=== PATIENT | female | born 1950 | race Caucasian/White ===

== ENCOUNTER → 2016-10-30 09:13 | Outpatient (CLI) | payer MEDICARE, OTHER ==
[~2016-10-30 09:13] MED LIST: ACETAMINOPHEN500 M1 PO; BENADRYL25 MG PO; ELAVIL75 MG PO; IMODIUM2 MG PO; K-DUR20 MEQ PO; LOMOTIL TABLET1 TAB PO; LOPID600 MG PO; MELATONIN 10 M1 EACH PO; MIDODRINE HCL5 MG PO; QUESTRAN PACK4 G/PKT PO; ZYRTEC10 MG PO
== END | disposition home or self-care (01) ==
LOC: D.US 09:13
DX: N25.81 Secondary hyperparathyroidism of renal origin (principal); N18.4 Chronic kidney disease, stage 4 (severe)

== ENCOUNTER 2017-04-17 12:03 | Inpatient (IN) | payer MEDICARE, OTHER ==
[~2017-04-17] VITALS: Ht 165.1 cm; Wt 59.0 kg
--- NOTE | ~2017-04-17 | DS ---
PATIENT:BAL DEL VALLE :54 MEDICAL RECORD: [id number] DISCHARGE SUMMARY ADMISSION DATE: 04/17/17 DISCHARGE DATE: 04/20/17 This is a discharge dated 04/20/2017 from the inpatient hospital. DISCHARGE DIAGNOSES: 1. Yalhp-at-xhmwkkc renal insufficiency with chronic kidney disease, stage IV-V. 2. Orthostatic hypotension. 3. Urinary tract infection. 4. Elevated uric acid/gout. 5. Anemia of chronic disease. 6. Peripheral vascular disease. 7. Chronic ileostomy. 8. Depression. 9. Hypocalcemia. 10. Reflux. CONSULTS THIS HOSPITALIZATION: Nephrology with Dr. Dupree. HOSPITAL COURSE: Full H&P is located elsewhere on the chart on this 67-year-old female who is admitted for evaluation of weakness and near syncope. Labs were consistent with the UTI and she also had orthostatic hypotension. She was started on IV fluids for hydration as well as IV antibiotics. Nephrology was consulted. She was seen by Dr. Dupree. She was treated for gout with findings of elevated uric acid levels. Her condition improved and she was considered stable for discharge on 04/20/2017. DISCHARGE MEDICATIONS: As per discharge medication reconciliation. DISCHARGE DISPOSITION: The patient is discharged home. She will continue her current diet and level of activity. Will follow up with primary care in [place] in 1 week. Will follow up with nephrology in 2 weeks. At least 30 minutes was spent in this discharge activity. TRANSINT:[id number] Voice Confirmation ID: [id number] DOCUMENT ID: [id number] Dictated By: MARY LUIS I have interviewed/examined the above patient and agree with these documented findings. ARIEL ADAMES MD at 1459 at 1500 CC: [id number] DICTATION DATE: 05/18/17 1440 MARKET RISK MANAGER: 05/19/17 1032 DIS IN 04/20/17 [facility] [address] [place] [address]
[2017-04-17 13:06] LABS: BASOPHILS 0.1 % (0-2); EOSINOPHILS 0.9 % (0-7); HEMATOCRIT 36.9 % (36.0-48.0); HEMOGLOBIN 13.4 g/dL (12-16); IMMATURE GRANULOCYTES 1.3 % (0-5); LYMPHOCYTES 11.1 % (15-50); MCH 33.8 pg (26.0-34.0); MCHC 36.3 g/dL (31.0-37.0); MCV 93.2 fL (80.0-100.0); MEAN PLATELET VOLUME 10.2 fL (7.4-10.4); MONOCYTES 8.4 % (2-11); NEUTROPHILS 78.2 % (40-80); RBC 3.96 10x6/uL (4.00-5.40); RDW 12.6 % (11.5-14.5); WBC 12.3 10x3/uL (4.8-10.8)
[2017-04-17 13:10] LABS: APPEARANCE SLT CLOUDY (CLEAR); BILIRUBIN NEGATIVE (NEGATIVE); COLOR YELLOW (YELLOW); GLUCOSE NEGATIVE (NEGATIVE); KETONE NEGATIVE (NEGATIVE); NITRITE NEGATIVE (NEGATIVE); PROTEIN 1+ mg/dL (NEGATIVE); SPECIFIC GRAVITY 1.015 (1.005-1.020); UROBILINOGEN NORMAL (NORMAL)
[2017-04-17 13:11] LABS: AMORPHOUS SEDIMENT <1+ /lpf (NONE SEEN); BACTERIA MANY /hpf (NONE SEEN); MUCUS <1+ /lpf (NONE SEEN)
[2017-04-17 13:19] LABS: PLATELET COUNT 254 10x3/uL (130-400)
[2017-04-17 13:50] LABS: ALBUMIN 4.3 g/dL (3.4-5.0); ALKALINE PHOSPHATASE 155 U/L (46-116); ALT (SGPT) 36 U/L (10-68); BILIRUBIN - TOTAL 0.44 mg/dL (0.2-1.3); CALC OSMOLALITY 288 mosm/kg (275-300); CALCIUM 7.4 mg/dL (8.5-10.1); CARBON DIOXIDE 28.6 mmol/L (21.0-32.0); CHLORIDE - SERUM 91 mmol/L (98-107); CREATININE - SERUM 4.5 mg/dL (0.6-1.3); GLUCOSE 89 mg/dL (74-106); POTASSIUM - SERUM 4.7 mmol/L (3.5-5.1); PROTEIN - SERUM 8.9 g/dL (6.4-8.2); SODIUM 134 mmol/L (136-145); UREA NITROGEN 73 mg/dL (7-18); eGFR NON AFRICAN AMERICAN 10 mL/min (90-120)
[2017-04-17 14:14] LABS: CKMB 2.3 U/L (0.0-3.6); CREATINE KINASE 952 UL (21-215); TROPONIN-I < 0.017 ng/mL (0.000-0.060)
[2017-04-17 21:25] VITALS: BP 107/67
[2017-04-18 00:36] VITALS: BP 109/61
[2017-04-18 01:35] VITALS: BMI 21.6
[2017-04-18 04:45] VITALS: BP 103/60
[2017-04-18 06:02] LABS: BASOPHILS 0.2 % (0-2); EOSINOPHILS 1.8 % (0-7); HEMOGLOBIN 11.3 g/dL (12-16); IMMATURE GRANULOCYTES 1.1 % (0-5); LYMPHOCYTES 18.1 % (15-50); MCH 33.4 pg (26.0-34.0); MCHC 35.3 g/dL (31.0-37.0); MCV 94.7 fL (80.0-100.0); MEAN PLATELET VOLUME 10.1 fL (7.4-10.4); MONOCYTES 8.3 % (2-11); NEUTROPHILS 70.5 % (40-80); RBC 3.38 10x6/uL (4.00-5.40); RDW 12.7 % (11.5-14.5)
[2017-04-18 06:04] LABS: PLATELET COUNT 202 10x3/uL (130-400); WBC 8.5 10x3/uL (4.8-10.8)
[2017-04-18 06:06] LABS: ALBUMIN 3.3 g/dL (3.4-5.0); ANION GAP 14.2 mmol/L (8-16); BILIRUBIN - TOTAL 0.39 mg/dL (0.2-1.3); CARBON DIOXIDE 27.9 mmol/L (21.0-32.0); CREATININE - SERUM 4.1 mg/dL (0.6-1.3); POTASSIUM - SERUM 4.1 mmol/L (3.5-5.1); PROTEIN - SERUM 7.2 g/dL (6.4-8.2)
[2017-04-18 06:11] LABS: CALCIUM 6.2 mg/dL (8.5-10.1)
[2017-04-18 08:05] VITALS: BP 90/58
[2017-04-18 12:10] VITALS: BP 136/78
[2017-04-18 12:18] VITALS: BMI 21.6
[2017-04-18 12:38] VITALS: Ht 165.1 cm; Wt 59.0 kg
[2017-04-18 15:01] VITALS: BP 118/61
[2017-04-18 21:11] VITALS: BP 116/74
[2017-04-19 01:27] VITALS: BP 102/62
[2017-04-19 05:08] VITALS: BP 108/59
[2017-04-19 06:49] LABS: BASOPHILS 0.1 % (0-2); EOSINOPHILS 1.4 % (0-7); HEMATOCRIT 29.7 % (36.0-48.0); HEMOGLOBIN 10.6 g/dL (12-16); IMMATURE GRANULOCYTES 1.1 % (0-5); LYMPHOCYTES 13.8 % (15-50); MCH 33.8 pg (26.0-34.0); MCHC 35.7 g/dL (31.0-37.0); MCV 94.6 fL (80.0-100.0); MEAN PLATELET VOLUME 9.7 fL (7.4-10.4); MONOCYTES 9.4 % (2-11); NEUTROPHILS 74.2 % (40-80); PLATELET COUNT 184 10x3/uL (130-400); RBC 3.14 10x6/uL (4.00-5.40); RDW 12.9 % (11.5-14.5); WBC 7.8 10x3/uL (4.8-10.8)
[2017-04-19 07:11] LABS: ALBUMIN 3.1 g/dL (3.4-5.0); ANION GAP 16.6 mmol/L (8-16); BILIRUBIN - TOTAL 0.29 mg/dL (0.2-1.3); CREATININE - SERUM 3.1 mg/dL (0.6-1.3); POTASSIUM - SERUM 3.6 mmol/L (3.5-5.1); PROTEIN - SERUM 6.6 g/dL (6.4-8.2); URIC ACID 8.8 mg/dL (2.6-7.2)
[2017-04-19 07:14] LABS: CALCIUM 5.7 mg/dL (8.5-10.1)
[2017-04-19 07:54] VITALS: BP 103/63
[2017-04-19 12:33] VITALS: BP 123/62
[2017-04-19 16:10] VITALS: BP 110/61
[2017-04-19 17:27] LABS: BASOPHILS 0.4 % (0-2); EOSINOPHILS 1.2 % (0-7); HEMATOCRIT 28.4 % (36.0-48.0); HEMOGLOBIN 10.1 g/dL (12-16); LYMPHOCYTES 12.3 % (15-50); MCH 33.9 pg (26.0-34.0); MCHC 35.6 g/dL (31.0-37.0); MCV 95.3 fL (80.0-100.0); MEAN PLATELET VOLUME 9.2 fL (7.4-10.4); MONOCYTES 11.4 % (2-11); NEUTROPHILS 73.7 % (40-80); PLATELET COUNT 167 10x3/uL (130-400); RBC 2.98 10x6/uL (4.00-5.40); RDW 12.8 % (11.5-14.5); WBC 7.2 10x3/uL (4.8-10.8)
[2017-04-19 18:08] LABS: ALBUMIN 3.2 g/dL (3.4-5.0); CARBON DIOXIDE 28.9 mmol/L (21.0-32.0); PHOSPHOROUS 3.7 mg/dL (2.5-4.9)
[2017-04-19 18:18] LABS: ANION GAP 15.1 mmol/L (8-16)
[2017-04-19 18:21] LABS: CALCIUM 5.3 mg/dL (8.5-10.1)
[2017-04-19 20:58] VITALS: BP 107/65
[2017-04-20 05:19] VITALS: BP 108/48
[2017-04-20 07:27] LABS: BASOPHILS 0.1 % (0-2); EOSINOPHILS 0 % (0-7); HEMATOCRIT 27.6 % (36.0-48.0); HEMOGLOBIN 9.9 g/dL (12-16); IMMATURE GRANULOCYTES 1.2 % (0-5); LYMPHOCYTES 9.6 % (15-50); MCH 33.6 pg (26.0-34.0); MCHC 35.9 g/dL (31.0-37.0); MCV 93.6 fL (80.0-100.0); MEAN PLATELET VOLUME 8.9 fL (7.4-10.4); MONOCYTES 5.5 % (2-11); NEUTROPHILS 83.6 % (40-80); PLATELET COUNT 161 10x3/uL (130-400); RBC 2.95 10x6/uL (4.00-5.40); RDW 12.8 % (11.5-14.5); WBC 6.9 10x3/uL (4.8-10.8)
[2017-04-20 07:53] LABS: ALBUMIN 2.9 g/dL (3.4-5.0); ANION GAP 17.2 mmol/L (8-16); BILIRUBIN - TOTAL 0.23 mg/dL (0.2-1.3); CARBON DIOXIDE 25.1 mmol/L (21.0-32.0); CREATININE - SERUM 2.7 mg/dL (0.6-1.3); POTASSIUM - SERUM 3.3 mmol/L (3.5-5.1); PROTEIN - SERUM 6.7 g/dL (6.4-8.2)
[2017-04-20 07:57] LABS: CALCIUM 5.7 mg/dL (8.5-10.1)
[2017-04-20 12:25] VITALS: BP 116/65
[2017-04-20] MEDS ORDERED: PREDNISONE20 MG PO (13:54)
[2017-04-20] MEDS ORDERED: KEFLEX500 MG PO (13:55)
[2017-05-08] MEDS ORDERED: K-DUR20 MEQ PO (13:49)
[2017-05-08] MEDS ORDERED: CALCIUM 600 +1 EAC3 (13:50)
== END 2017-04-20 16:39 | disposition home or self-care (01) | DRG 690 ==
LOC: D.ER 12:03 → D.M2 17:19
PROVIDERS: Emergency Medicine; Family Medicine; Internal Medicine
DX: N39.0 Urinary tract infection, site not specified (principal); I95.1 Orthostatic hypotension; N18.9 Chronic kidney disease, unspecified; I12.9 Hypertensive chronic kidney disease with stage 1 through stage 4 chronic kidney disease, or unspecified chronic kidney disease; D63.1 Anemia in chronic kidney disease; E86.0 Dehydration; E83.51 Hypocalcemia; M10.9 Gout, unspecified

== ENCOUNTER 2017-04-28 15:08 | Outpatient (CLI) | payer MEDICARE, OTHER ==
[~2017-04-28] VITALS: Ht 165.1 cm; Wt 60.0 kg
[~2017-04-28 15:08] MED LIST changes: +KEFLEX500 MG PO; +PREDNISONE20 MG PO
[2017-04-28 15:45] VITALS: BP 120/67; Ht 165.1 cm; Wt 60.0 kg
[2017-05-08] MEDS ORDERED: K-DUR20 MEQ PO (13:49)
[2017-05-08] MEDS ORDERED: CALCIUM 600 +1 EAC3 (13:50)
== END 2017-04-28 20:08 | disposition home or self-care (01) ==
LOC: D.OPS 15:08
DX: K91.2 Postsurgical malabsorption, not elsewhere classified (principal); N18.4 Chronic kidney disease, stage 4 (severe); E86.0 Dehydration

== ENCOUNTER 2017-04-29 11:12 | Inpatient (IN) | payer MEDICARE, OTHER ==
[~2017-04-29] VITALS: Ht 165.1 cm; Wt 56.0 kg
[2017-04-29 14:15] LABS: BASOPHILS 0.1 % (0-2); EOSINOPHILS 1.2 % (0-7); HEMOGLOBIN 11.8 g/dL (12-16); IMMATURE GRANULOCYTES 1.7 % (0-5); LYMPHOCYTES 6.6 % (15-50); MCH 34.1 pg (26.0-34.0); MCHC 35.8 g/dL (31.0-37.0); MCV 95.4 fL (80.0-100.0); MEAN PLATELET VOLUME 9.8 fL (7.4-10.4); MONOCYTES 7.2 % (2-11); NEUTROPHILS 83.2 % (40-80); RBC 3.46 10x6/uL (4.00-5.40); RDW 13.6 % (11.5-14.5); WBC 15.6 10x3/uL (4.8-10.8)
[2017-04-29 14:16] LABS: PLATELET COUNT 229 10x3/uL (130-400)
[2017-04-29 14:44] LABS: ALKALINE PHOSPHATASE 81 U/L (46-116); ALT (SGPT) 54 U/L (10-68); BILIRUBIN - TOTAL 0.65 mg/dL (0.2-1.3); CALC OSMOLALITY 287 mosm/kg (275-300); CARBON DIOXIDE 33.5 mmol/L (21.0-32.0); CHLORIDE - SERUM 90 mmol/L (98-107); CKMB 1.1 U/L (0.0-3.6); CREATINE KINASE 707 UL (21-215); GLUCOSE 106 mg/dL (74-106); POTASSIUM - SERUM 3.2 mmol/L (3.5-5.1); PRO BNP 338 pg/mL (0-125); PROTEIN - SERUM 7.5 g/dL (6.4-8.2); SODIUM 133 mmol/L (136-145); UREA NITROGEN 73 mg/dL (7-18); eGFR NON AFRICAN AMERICAN 17 mL/min (90-120)
[2017-04-29 14:50] LABS: TROPONIN-I < 0.017 ng/mL (0.000-0.060)
[2017-04-29 14:51] LABS: CALCIUM 5.7 mg/dL (8.5-10.1)
[2017-04-29 16:37] LABS: APPEARANCE CLEAR (CLEAR); BILIRUBIN NEGATIVE (NEGATIVE); COLOR YELLOW (YELLOW); GLUCOSE NEGATIVE (NEGATIVE); KETONE NEGATIVE (NEGATIVE); NITRITE NEGATIVE (NEGATIVE); PROTEIN TRACE mg/dL (NEGATIVE); UROBILINOGEN NORMAL (NORMAL)
[2017-04-29 16:38] LABS: RED CELLS - URINE OCC /hpf (0-5); WHITE CELLS - URINE OCC /hpf (0-5)
[2017-04-29 16:39] LABS: BACTERIA FEW /hpf (NONE SEEN)
[2017-04-30 01:17] VITALS: BP 108/56; BMI 20.8
[2017-04-30 04:46] VITALS: BP 83/44
[2017-04-30 05:36] LABS: BASOPHILS 0.1 % (0-2); EOSINOPHILS 2.1 % (0-7); HEMATOCRIT 32.1 % (36.0-48.0); HEMOGLOBIN 11.1 g/dL (12-16); IMMATURE GRANULOCYTES 1.1 % (0-5); LYMPHOCYTES 3.9 % (15-50); MCH 33.1 pg (26.0-34.0); MCHC 34.6 g/dL (31.0-37.0); MCV 95.8 fL (80.0-100.0); MONOCYTES 7.7 % (2-11); NEUTROPHILS 85.1 % (40-80); PLATELET COUNT 217 10x3/uL (130-400); RBC 3.35 10x6/uL (4.00-5.40); RDW 13.4 % (11.5-14.5); WBC 13.6 10x3/uL (4.8-10.8)
[2017-04-30 06:32] LABS: ALBUMIN 2.8 g/dL (3.4-5.0); ANION GAP 14.8 mmol/L (8-16); BILIRUBIN - TOTAL 0.61 mg/dL (0.2-1.3); CARBON DIOXIDE 31.2 mmol/L (21.0-32.0); CREATININE - SERUM 2.8 mg/dL (0.6-1.3); PROTEIN - SERUM 7.2 g/dL (6.4-8.2)
[2017-04-30 08:36] VITALS: BP 107/65
[2017-04-30 11:00] VITALS: Ht 165.1 cm; Wt 56.0 kg
[2017-04-30 12:15] VITALS: BP 102/60
[2017-04-30 15:06] VITALS: BP 103/59
[2017-04-30 19:00] VITALS: BP 118/61
[2017-05-01 04:00] VITALS: BP 98/54
[2017-05-01 07:46] LABS: HEMATOCRIT 31.4 % (36.0-48.0); HEMOGLOBIN 11.1 g/dL (12-16); LYMPHOCYTES 10.8 % (15-50); MCH 32.8 pg (26.0-34.0); MCHC 35.4 g/dL (31.0-37.0); MEAN PLATELET VOLUME 9.3 fL (7.4-10.4); NEUTROPHILS 77.6 % (40-80); PLATELET COUNT 219 10x3/uL (130-400); RBC 3.38 10x6/uL (4.00-5.40); RDW 13.9 % (11.5-14.5)
[2017-05-01 08:02] LABS: ALBUMIN 2.7 g/dL (3.4-5.0); ANION GAP 15.4 mmol/L (8-16); BILIRUBIN - TOTAL 0.5 mg/dL (0.2-1.3); CREATININE - SERUM 2.9 mg/dL (0.6-1.3); POTASSIUM - SERUM 3.4 mmol/L (3.5-5.1); PROTEIN - SERUM 7.4 g/dL (6.4-8.2)
[2017-05-01 08:08] VITALS: BP 90/55
[2017-05-01 08:16] LABS: CALCIUM 5.8 mg/dL (8.5-10.1)
[2017-05-01 08:22] LABS: MCV 92.9 fL (80.0-100.0); WBC 9.4 10x3/uL (4.8-10.8)
[2017-05-01 11:37] VITALS: BP 95/50
[2017-05-01 14:05] LABS: CARBON DIOXIDE 28.5 mmol/L (21.0-32.0); MAGNESIUM - SERUM 1.8 mg/dL (1.8-2.4)
[2017-05-01 14:07] LABS: ANION GAP 16.2 mmol/L (8-16); CALCIUM 7.7 mg/dL (8.5-10.1)
[2017-05-01 14:11] LABS: POTASSIUM - SERUM 2.7 mmol/L (3.5-5.1)
[2017-05-01 16:01] VITALS: BP 92/52
[2017-05-01 21:52] VITALS: BP 101/66
[2017-05-02 06:17] VITALS: BP 101/67
[2017-05-02 06:30] LABS: BASOPHILS 0.1 % (0-2); EOSINOPHILS 2.6 % (0-7); HEMATOCRIT 31.2 % (36.0-48.0); HEMOGLOBIN 10.7 g/dL (12-16); IMMATURE GRANULOCYTES 1.4 % (0-5); LYMPHOCYTES 11.1 % (15-50); MCHC 34.3 g/dL (31.0-37.0); MONOCYTES 8.2 % (2-11); NEUTROPHILS 76.6 % (40-80); PLATELET COUNT 236 10x3/uL (130-400); RBC 3.24 10x6/uL (4.00-5.40); RDW 13.5 % (11.5-14.5); WBC 9.1 10x3/uL (4.8-10.8)
[2017-05-02 06:34] LABS: MCV 96.3 fL (80.0-100.0)
[2017-05-02 06:55] LABS: ALBUMIN 2.6 g/dL (3.4-5.0); BILIRUBIN - TOTAL 0.3 mg/dL (0.2-1.3); CARBON DIOXIDE 25.8 mmol/L (21.0-32.0); MAGNESIUM - SERUM 1.7 mg/dL (1.8-2.4); PHOSPHOROUS 3.1 mg/dL (2.5-4.9); PROTEIN - SERUM 7.2 g/dL (6.4-8.2)
[2017-05-02 06:59] LABS: ANION GAP 15.3 mmol/L (8-16); CALCIUM 6.9 mg/dL (8.5-10.1); POTASSIUM - SERUM 5.1 mmol/L (3.5-5.1)
[2017-05-02 07:57] VITALS: BP 115/72
[2017-05-02 11:30] VITALS: BP 108/64
[2017-05-02 20:30] VITALS: BP 122/72
[2017-05-03] VITALS: BP 103/56
[2017-05-03 06:21] VITALS: BP 102/59
[2017-05-03 06:53] LABS: BASOPHILS 0.3 % (0-2); HEMATOCRIT 32.3 % (36.0-48.0); HEMOGLOBIN 11.2 g/dL (12-16); LYMPHOCYTES 10.6 % (15-50); MCH 33.5 pg (26.0-34.0); MCHC 34.7 g/dL (31.0-37.0); MCV 96.7 fL (80.0-100.0); MEAN PLATELET VOLUME 9.7 fL (7.4-10.4); MONOCYTES 8.2 % (2-11); NEUTROPHILS 75.9 % (40-80); PLATELET COUNT 273 10x3/uL (130-400); RBC 3.34 10x6/uL (4.00-5.40); RDW 13.8 % (11.5-14.5); WBC 10.1 10x3/uL (4.8-10.8)
[2017-05-03 07:19] LABS: ALBUMIN 2.8 g/dL (3.4-5.0); ANION GAP 17.3 mmol/L (8-16); BILIRUBIN - TOTAL 0.42 mg/dL (0.2-1.3); CALCIUM 7.1 mg/dL (8.5-10.1); CARBON DIOXIDE 24.3 mmol/L (21.0-32.0); CREATININE - SERUM 2.4 mg/dL (0.6-1.3); POTASSIUM - SERUM 4.6 mmol/L (3.5-5.1); PROTEIN - SERUM 7.4 g/dL (6.4-8.2); URIC ACID 9.9 mg/dL (2.6-7.2)
[2017-05-03 08:09] VITALS: BP 109/64
[2017-05-03 12:27] VITALS: BP 131/84
[2017-05-03 17:30] VITALS: BP 104/68
[2017-05-08] MEDS ORDERED: K-DUR20 MEQ PO (13:49)
[2017-05-08] MEDS ORDERED: CALCIUM 600 +1 EAC3 (13:50)
== END 2017-05-03 18:38 | disposition home or self-care (01) | DRG 690 ==
LOC: D.ER 11:12 → D.M2 23:13 → OBSVTIME 23:13 → D.M2 04-30 14:39
PROVIDERS: Emergency Medicine; Family Medicine; Internal Medicine Nephrology
DX: N39.0 Urinary tract infection, site not specified (principal); I12.0 Hypertensive chronic kidney disease with stage 5 chronic kidney disease or end stage renal disease; N18.5 Chronic kidney disease, stage 5; E87.1 Hypo-osmolality and hyponatremia; E87.6 Hypokalemia; E86.0 Dehydration; I95.1 Orthostatic hypotension; D63.1 Anemia in chronic kidney disease; E83.51 Hypocalcemia; M10.9 Gout, unspecified; Z85.038 Personal history of other malignant neoplasm of large intestine

== ENCOUNTER 2017-05-09 05:16 | Day surgery (SDC) | payer MEDICARE, OTHER ==
[2017-05-08 14:22] LABS: BASOPHILS 0.3 % (0-2); EOSINOPHILS 1.3 % (0-7); HEMATOCRIT 36.2 % (36.0-48.0); HEMOGLOBIN 12.6 g/dL (12-16); LYMPHOCYTES 15.9 % (15-50); MCH 33.4 pg (26.0-34.0); MCHC 34.8 g/dL (31.0-37.0); MEAN PLATELET VOLUME 9.4 fL (7.4-10.4); MONOCYTES 6.4 % (2-11); NEUTROPHILS 75.1 % (40-80); RBC 3.77 10x6/uL (4.00-5.40); RDW 13.5 % (11.5-14.5); WBC 10.4 10x3/uL (4.8-10.8)
[2017-05-08 14:23] LABS: PLATELET COUNT 343 10x3/uL (130-400)
[2017-05-08 14:30] LABS: ANION GAP 16.2 mmol/L (8-16); CALCIUM 9.4 mg/dL (8.5-10.1); CARBON DIOXIDE 29.2 mmol/L (21.0-32.0); CREATININE - SERUM 3.2 mg/dL (0.6-1.3); POTASSIUM - SERUM 5.4 mmol/L (3.5-5.1)
[2017-05-08 14:31] LABS: APTT 25.1 SECONDS (22.8-39.4); INR 1.18 (0.85-1.17); PROTIME 14.6 SECONDS (11.6-15.0)
[~2017-05-09] VITALS: Ht 165.1 cm; Wt 59.9 kg
--- NOTE | ~2017-05-09 | OP ---
PATIENT NAME: BAL DEL VALLE MEDICAL RECORD: [id number] :54 LOCATION:[facility] ADMISSION DATE: SURGEON: TETE COHEN MD DATE OF OPERATION: 05/09/2017 PREOPERATIVE DIAGNOSIS: Chronic kidney disease V. ADDITIONAL DIAGNOSES: Short bowel syndrome with history of recurring episodes of dehydration, intravascular volume depletion, and electrolyte disorders. POSTOPERATIVE DIAGNOSIS: Chronic kidney disease V. OPERATION PERFORMED: Creation of a left brachiocephalic arteriovenous fistula. ANESTHESIA: Regional nerve block and MAC per EXECUTIVE CHEF ASSISTANT. SURGEON: Tete Cohen MD REFERRING PHYSICIAN: Dr. Hirsch. PREOPERATIVE NOTE: This 67-year-old white female patient with severe chronic renal disease, was referred to me for establishment of an AV fistula for dialysis access. She has adequate peripheral veins and arteries by her preoperative examination and vein mapping; however, she does have a history of repeated episodes of dehydration associated with her short gut syndrome and I fear that if this pattern continues, she will be prone to repeated thrombosis of any AV access. Hopefully, her volume status will be easier to control and replace fluid losses, etc. once she gets started on dialysis. Under regional block and MAC in supine position, the patient's left arm was prepped and draped in sterile manner. Topical nitroglycerin was applied to the arm and a Raul drain used as a proximal venous tourniquet, I performed a duplex ultrasound examination and confirmed the median cubital and cephalic vein to be quite suitable for our anastomosis today. I then released the tourniquet and made a transverse antecubital incision and exposed the median cubital/cephalic vein and the brachial artery. These vessels were controlled with Silastic loops and treated with topical papaverine. Distally, the vein was ligated and divided and beveled, it was flushed with heparinized saline and clamped. The artery was occluded and then opened for a distance of about 5 mm or 6 mm. The artery was flushed proximally and distally with heparinized saline and the vein end was then anastomosed to the side of the artery with continuous running 7-0 Prolene. When the anastomosis was completed and the occluding loops and clamps released, excellent flow was established immediately in the fistula and there was persistent pulsatile Doppler flow noted at the wrist. The patient's wounds were irrigated with Ancef/gentamicin solution and then closed with interrupted inverted 3-0 Vicryl subcutaneous sutures and the skin was closed with running intracuticular 4-0 Monocryl and Dermabond glue. The incision was dressed with Maxorb Ag, Tegaderm, and Cavilon skin prep. The patient then awakened and taken to the recovery room with a good pulse, thrill, and bruit over her new fistula. I will plan for this lady to go home today, but I have her return to see me fairly early this Friday of next week. She is given a prescription for [place] 5/325, #20, she can take 1 p.o. q.4 hours p.r.n. pain. She will resume all of OPERATIVE REPORT [id number] IVON,BAL MOHAMUDYE her home medications and her usual renal diet and activities as tolerated. Blood loss during the operation about 5 cc was unreplaced. All sponges and instruments were accounted for. One 7.0 needle was lost during the procedure, careful inspection of the wound ruled out its presence there. No drain was utilized and no surgical specimen submitted for histopathology. TRANSINT:[id number] Voice Confirmation ID: [id number] DOCUMENT ID: [id number] TETE COHEN MD at 1411 CC: [id number] DICTATION DATE: 05/09/17 1021 LINER MACHINE OPERATOR: 05/09/17 1415 [facility] 05/09/17 [address] [place] [address]
[~2017-05-09 05:16] MED LIST changes: +CALCIUM 600 +1 EAC3
[2017-05-09 07:28] VITALS: BP 93/66; Ht 165.1 cm; Wt 59.9 kg
[2017-05-09] MEDS ORDERED: HYDROCODON-ACE1 EAC7 PO (10:09)
== END 2017-05-09 12:30 | disposition home or self-care (01) ==
LOC: D.OPS 05:16
PROVIDERS: Anesthesiology
DX: I12.0 Hypertensive chronic kidney disease with stage 5 chronic kidney disease or end stage renal disease (principal); N18.5 Chronic kidney disease, stage 5; Z99.2 Dependence on renal dialysis; Z01.812 Encounter for preprocedural laboratory examination; Z01.810 Encounter for preprocedural cardiovascular examination

== ENCOUNTER → 2017-06-23 10:49 | Outpatient (CLI) | payer MEDICARE, OTHER ==
[2017-05-09 07:28] VITALS: BMI 22.0
[~2017-06-23 10:49] MED LIST changes: +HYDROCODON-ACE1 EAC7 PO
[2017-06-23 11:46] LABS: ANION GAP 14.2 mmol/L (8-16); CALCIUM 8.8 mg/dL (8.5-10.1); CARBON DIOXIDE 30.2 mmol/L (21.0-32.0); CREATININE - SERUM 3.1 mg/dL (0.6-1.3); POTASSIUM - SERUM 4.4 mmol/L (3.5-5.1)
== END | disposition home or self-care (01) ==
LOC: D.LAB 10:49
PROVIDERS: Family Medicine
DX: E83.51 Hypocalcemia (principal); N18.2 Chronic kidney disease, stage 2 (mild)

== ENCOUNTER 2018-02-06 05:00 | Day surgery (SDC) | payer MEDICARE, OTHER ==
[~2018-02-06] VITALS: Ht 165.1 cm; Wt 59.9 kg
--- NOTE | ~2018-02-06 | OP ---
PATIENT NAME: BAL DEL VALLE MEDICAL RECORD: [id number] :54 LOCATION:[facility] ADMISSION DATE: SURGEON: TETE COHEN MD DATE OF OPERATION: 02/06/2018 REFERRED BY: Aniya Hirsch MD and Dr. Gabriel. PREOPERATIVE DIAGNOSES: Chronic kidney disease stage V and mechanical complication of surgically created AV fistula in the left arm. POSTOPERATIVE DIAGNOSES: Chronic kidney disease stage V and mechanical complication of surgically created AV fistula in the left arm. OPERATION PERFORMED: Revision of AV fistula of left arm by interposition of a 6 mm diameter Artegraft and exclusion of tortuous segment of AV fistula. ANESTHESIA: General with LMA per MACHINE II TRIMMER. PREOPERATIVE NOTE: This very pleasant 68-year-old lady from [place] with severe renal insufficiency who is anticipated to require dialysis, but I do not believe has yet. She had a left brachiocephalic AV fistula created in April of this year and it has dilated, but the segment in the mid third of the arm is very tortuous and it is not thought to be a usable fistula for this reason. She is returned to the operating room now to revise it. I am planning on interposing an Artegraft segment. Under anesthesia in supine position, the patient was prepped and draped in a sterile manner. I made an incision in the upper arm and exposed the cephalic vein and controlled it with Silastic loops. I made another incision through the old scar in the antecubital space and exposed the cephalic vein fistula at the arterial anastomosis and it was controlled with Silastic loops. I then ligated the cephalic vein, the upper incision and transected it and anastomosed it end-to-end to an Artegraft flushed thoroughly with saline prior. The anastomosis done with 6-0 Prolene and the anastomosis sealed further with BioGlue. The anastomosis was watertight and there was no significant stenosis resulting from the suture line. The graft was pulled through a subcutaneous tunnel, placed very superficially and laterally to the old tortuous cephalic vein fistula. In the antecubital space incision, the vein was ligated and occluded near the arterial anastomosis and sharply divided. The Artegraft was shortened and bevelled and anastomosed end-to-end to the existing cephalic vein fistula stump with running 6-0 Prolene. That anastomosis also was sealed with BioGlue and the anastomosis later when the clamps were removed was hemostatic and there was excellent flow in the AV graft. The wounds were irrigated with gentamicin solution. The patient having a history of allergy to PENICILLINS. The 2 wounds were infiltrated and irrigated with 0.25% Marcaine without epinephrine and closed with interrupted inverted 3-0 Vicryl and running intracuticular 4-0 Monocryl and Dermabond glue. The incisions were dressed with Maxorb Ag, Tegaderm, and Cavilon skin prep. The patient was awakened and taken to the recovery room in stable condition with a loud bruit over the graft, which was also easily palpable and should be fairly straightforward to access when it is necessary. The patient will be discharged to home today and follow up with me in my office. She is given a prescription for 10 Arp 5/325 tablets. OPERATIVE REPORT [id number] BAL DEL VALLE Blood loss during the operation was about 25 cc, which was unreplaced. All sponges, instruments and needles were accounted for. No drain was used. TRANSINT:[id number] Voice Confirmation ID: [id number] DOCUMENT ID: [id number] TETE COHEN MD at 2031 CC: ANIYA HIRSCH MD and STAR GABRIEL MD [id number] DICTATION DATE: 02/06/18 1044 MAINTENANCE MECHANIC HELPER: 02/06/[address] [facility] [place] 02/06/18 [facility] [address] [place] [address]
[2018-02-06 05:40] LABS: BASOPHILS 0.5 % (0-2); EOSINOPHILS 6.3 % (0-7); HEMATOCRIT 38.2 % (36.0-48.0); HEMOGLOBIN 13.3 g/dL (12-16); IMMATURE GRANULOCYTES 0.7 % (0-5); LYMPHOCYTES 35.7 % (15-50); MCH 32.3 pg (26.0-34.0); MCHC 34.8 g/dL (31.0-37.0); MCV 92.7 fL (80.0-100.0); MEAN PLATELET VOLUME 9.6 fL (7.4-10.4); NEUTROPHILS 48.8 % (40-80); RBC 4.12 10x6/uL (4.00-5.40); RDW 13.1 % (11.5-14.5); WBC 5.9 10x3/uL (4.8-10.8)
[2018-02-06 05:43] LABS: PLATELET COUNT 212 10x3/uL (130-400)
[2018-02-06 05:52] LABS: ANION GAP 19.4 mmol/L (8-16); CALCIUM 10.3 mg/dL (8.5-10.1); CARBON DIOXIDE 25.8 mmol/L (21.0-32.0); CREATININE - SERUM 3.5 mg/dL (0.6-1.3); POTASSIUM - SERUM 4.2 mmol/L (3.5-5.1)
[2018-02-06 05:58] LABS: APTT 27.7 SECONDS (22.8-39.4); INR 1.26 (0.85-1.17); PROTIME 15.4 SECONDS (11.6-15.0)
[2018-02-06] MEDS ORDERED: IMODIUM2 MG PO (06:52)
[2018-02-06 07:07] VITALS: BP 124/70; Ht 165.1 cm; Wt 59.9 kg
== END 2018-02-06 12:17 | disposition home or self-care (01) ==
LOC: D.OPS 05:00
PROVIDERS: Surgery
DX: T82.590A Other mechanical complication of surgically created arteriovenous fistula, initial encounter (principal); N18.5 Chronic kidney disease, stage 5; Z99.2 Dependence on renal dialysis; Z01.812 Encounter for preprocedural laboratory examination

== ENCOUNTER 2018-07-23 12:08 | Inpatient (IN) | payer MEDICARE, BC ==
[~2018-07-23] VITALS: Ht 165.1 cm; Wt 58.0 kg
[2018-07-23] VITALS (7 sets, daily range): BP systolic 89–111; BP diastolic 56–71; BMI 19.6
[~2018-07-23 12:08] MED LIST changes: +DIFLUCAN100 MG PO; +MAG-OX 400 MG400 MG PO; +OMNICEF300 MG PO; +QUESTRAN PACKET PO; +RENVELA800 MG PO; +ROCALTROL0.25 MCG PO; +ULORIC40 MG PO
[2018-07-23 14:07] LABS: BASOPHILS 0.2 % (0-2); EOSINOPHILS 0.3 % (0-7); HEMATOCRIT 39.1 % (36.0-48.0); HEMOGLOBIN 13.7 g/dL (12-16); IMMATURE GRANULOCYTES 1.2 % (0-5); LYMPHOCYTES 12.4 % (15-50); MCH 32.5 pg (26.0-34.0); MCV 92.9 fL (80.0-100.0); MEAN PLATELET VOLUME 9.5 fL (7.4-10.4); MONOCYTES 9.2 % (2-11); NEUTROPHILS 76.7 % (40-80); RBC 4.21 10x6/uL (4.00-5.40); RDW 14.2 % (11.5-14.5); WBC 14.5 10x3/uL (4.8-10.8)
[2018-07-23 14:11] LABS: PLATELET COUNT 309 10x3/uL (130-400)
[2018-07-23 15:59] LABS: ALBUMIN 4.2 g/dL (3.4-5.0); BILIRUBIN - DIRECT 0.28 mg/dL (0.00-0.30); BILIRUBIN - INDIRECT 0.49 mg/dL (0.00-1.00); BILIRUBIN - TOTAL 0.77 mg/dL (0.2-1.3); CALCIUM 7.4 mg/dL (8.5-10.1); CARBON DIOXIDE 27.5 mmol/L (21.0-32.0); CREATININE - SERUM 7.6 mg/dL (0.6-1.3); PROTEIN - SERUM 8.9 g/dL (6.4-8.2)
[2018-07-23 16:10] LABS: ANION GAP 25.3 mmol/L (8-16); POTASSIUM - SERUM 7.8 mmol/L (3.5-5.1)
[2018-07-24] VITALS (15 sets, daily range): BP systolic 89–211; BP diastolic 45–79; Ht 165.1 cm; Wt 58.0 kg
[2018-07-24 05:14] LABS: BASOPHILS 0.4 % (0-2); EOSINOPHILS 0.8 % (0-7); IMMATURE GRANULOCYTES 1.7 % (0-5); LYMPHOCYTES 20.1 % (15-50); MCH 31.7 pg (26.0-34.0); MCHC 34.1 g/dL (31.0-37.0); MEAN PLATELET VOLUME 9.1 fL (7.4-10.4); MONOCYTES 10.8 % (2-11); NEUTROPHILS 66.2 % (40-80); RDW 14.1 % (11.5-14.5)
[2018-07-24 05:18] LABS: HEMATOCRIT 30.5 % (36.0-48.0); HEMOGLOBIN 10.4 g/dL (12-16); PLATELET COUNT 196 10x3/uL (130-400); RBC 3.28 10x6/uL (4.00-5.40); WBC 9.1 10x3/uL (4.8-10.8)
[2018-07-24 05:26] LABS: ANION GAP 16.2 mmol/L (8-16); CALCIUM 6.2 mg/dL (8.5-10.1); CARBON DIOXIDE 25.2 mmol/L (21.0-32.0); CREATININE - SERUM 7.2 mg/dL (0.6-1.3); PHOSPHOROUS 8.4 mg/dL (2.5-4.9); POTASSIUM - SERUM 5.4 mmol/L (3.5-5.1)
[2018-07-24 05:33] LABS: APPEARANCE CLEAR (CLEAR); BILIRUBIN NEGATIVE (NEGATIVE); COLOR YELLOW (YELLOW); GLUCOSE 50 mg/dL (NEGATIVE); KETONE NEGATIVE (NEGATIVE); NITRITE NEGATIVE (NEGATIVE); PROTEIN NEGATIVE (NEGATIVE); UROBILINOGEN NORMAL (NORMAL)
[2018-07-24 05:41] LABS: CREATININE - URINE 97.9 mg/dL (30-125); PROTEIN - URINE 58.6 mg/dL (0.0-11.9)
[2018-07-25 00:16] VITALS: BP 153/63
[2018-07-25 04:25] VITALS: BP 119/58
[2018-07-25 05:48] LABS: BASOPHILS 0.3 % (0-2); EOSINOPHILS 1.7 % (0-7); HEMATOCRIT 26.6 % (36.0-48.0); HEMOGLOBIN 8.8 g/dL (12-16); IMMATURE GRANULOCYTES 1.4 % (0-5); LYMPHOCYTES 17.4 % (15-50); MCH 31.4 pg (26.0-34.0); MCHC 33.1 g/dL (31.0-37.0); MEAN PLATELET VOLUME 9.1 fL (7.4-10.4); NEUTROPHILS 69.2 % (40-80); PLATELET COUNT 165 10x3/uL (130-400); RDW 14.4 % (11.5-14.5)
[2018-07-25 05:52] LABS: WBC 6.6 10x3/uL (4.8-10.8)
[2018-07-25 06:03] LABS: CARBON DIOXIDE 20.7 mmol/L (21.0-32.0); CREATININE - SERUM 6.2 mg/dL (0.6-1.3)
[2018-07-25 06:05] LABS: ANION GAP 18.7 mmol/L (8-16); POTASSIUM - SERUM 4.4 mmol/L (3.5-5.1)
[2018-07-25 06:06] LABS: CALCIUM 5.2 mg/dL (8.5-10.1)
[2018-07-25 07:49] VITALS: BP 136/56
[2018-07-25 12:16] VITALS: BP 132/64
[2018-07-25 15:38] VITALS: BP 129/56
[2018-07-26] VITALS: BP 136/56
[2018-07-26 04:00] VITALS: BP 124/42
[2018-07-26 05:31] LABS: BASOPHILS 0.2 % (0-2); EOSINOPHILS 1.8 % (0-7); HEMATOCRIT 24.6 % (36.0-48.0); HEMOGLOBIN 8.2 g/dL (12-16); LYMPHOCYTES 21.9 % (15-50); MCH 31.7 pg (26.0-34.0); MCHC 33.3 g/dL (31.0-37.0); MEAN PLATELET VOLUME 8.9 fL (7.4-10.4); NEUTROPHILS 65.1 % (40-80); RBC 2.59 10x6/uL (4.00-5.40); RDW 14.5 % (11.5-14.5)
[2018-07-26 05:32] LABS: PLATELET COUNT 131 10x3/uL (130-400)
[2018-07-26 05:53] LABS: CREATININE - SERUM 5.8 mg/dL (0.6-1.3); MAGNESIUM - SERUM 1.3 mg/dL (1.8-2.4); PHOSPHOROUS 5.8 mg/dL (2.5-4.9); URIC ACID 9.2 mg/dL (2.6-7.2)
[2018-07-26 05:54] LABS: ANION GAP 16.5 mmol/L (8-16); POTASSIUM - SERUM 3.5 mmol/L (3.5-5.1)
[2018-07-26 05:55] LABS: CALCIUM 5.6 mg/dL (8.5-10.1)
[2018-07-26 08:20] VITALS: BP 136/69
[2018-07-26 09:13] LABS: % SATURATION 13 % (15-55); IRON 27 ug/dl (35-150); TOTAL IRON BIND CAPACITY 199 ug/dl (260-445); UNSAT IRON BIND CAPACITY 172 ug/dl (150-375)
[2018-07-26 12:10] VITALS: BP 122/74
[2018-07-26 14:52] VITALS: BP 131/71
[2018-07-26 20:30] VITALS: BP 133/62
[2018-07-27 00:54] VITALS: BP 167/45
[2018-07-27 04:52] LABS: BASOPHILS 0.2 % (0-2); EOSINOPHILS 2.3 % (0-7); HEMATOCRIT 24.7 % (36.0-48.0); HEMOGLOBIN 8.2 g/dL (12-16); IMMATURE GRANULOCYTES 1.9 % (0-5); LYMPHOCYTES 16.3 % (15-50); MCH 31.5 pg (26.0-34.0); MCHC 33.2 g/dL (31.0-37.0); MEAN PLATELET VOLUME 9.2 fL (7.4-10.4); MONOCYTES 12.4 % (2-11); NEUTROPHILS 66.9 % (40-80); PLATELET COUNT 148 10x3/uL (130-400); RDW 14.5 % (11.5-14.5); WBC 5.7 10x3/uL (4.8-10.8)
[2018-07-27 05:10] LABS: CARBON DIOXIDE 20.3 mmol/L (21.0-32.0); CREATININE - SERUM 5.1 mg/dL (0.6-1.3); MAGNESIUM - SERUM 1.7 mg/dL (1.8-2.4); PHOSPHOROUS 4.8 mg/dL (2.5-4.9); POTASSIUM - SERUM 3.3 mmol/L (3.5-5.1)
[2018-07-27 05:12] LABS: CALCIUM 6.7 mg/dL (8.5-10.1)
[2018-07-27 05:41] VITALS: BP 140/37
[2018-07-27 08:18] VITALS: BP 127/49
[2018-07-27 13:08] VITALS: BP 122/45
[2018-07-27 15:13] LABS: ANA REFLEX - DIRECT Negative (Negative)
[2018-07-27 21:33] VITALS: BP 142/64
[2018-07-28] VITALS (7 sets, daily range): BP systolic 98–136; BP diastolic 42–76
[2018-07-28 05:19] LABS: ANION GAP 11.4 mmol/L (8-16); BASOPHILS 0.3 % (0-2); CARBON DIOXIDE 24.1 mmol/L (21.0-32.0); CREATININE - SERUM 4.4 mg/dL (0.6-1.3); EOSINOPHILS 1.8 % (0-7); HEMATOCRIT 24.5 % (36.0-48.0); HEMOGLOBIN 8.2 g/dL (12-16); IMMATURE GRANULOCYTES 2.9 % (0-5); LYMPHOCYTES 17.9 % (15-50); MCH 31.7 pg (26.0-34.0); MCHC 33.5 g/dL (31.0-37.0); MCV 94.6 fL (80.0-100.0); MEAN PLATELET VOLUME 9.3 fL (7.4-10.4); MONOCYTES 10.6 % (2-11); NEUTROPHILS 66.5 % (40-80); POTASSIUM - SERUM 3.5 mmol/L (3.5-5.1); RBC 2.59 10x6/uL (4.00-5.40); RDW 14.5 % (11.5-14.5)
[2018-07-28 05:22] LABS: PLATELET COUNT 202 10x3/uL (130-400); WBC 7.7 10x3/uL (4.8-10.8)
[2018-07-28 05:38] LABS: PHOSPHOROUS 3.5 mg/dL (2.5-4.9)
[2018-07-28 05:39] LABS: CALCIUM 6.5 mg/dL (8.5-10.1)
[2018-07-29 04:09] VITALS: BP 109/60
[2018-07-29 07:00] LABS: MAGNESIUM - SERUM 1.3 mg/dL (1.8-2.4); PHOSPHOROUS 2.9 mg/dL (2.5-4.9)
[2018-07-29 07:49] LABS: % SATURATION 24 % (15-55); IRON 41 ug/dl (35-150); TOTAL IRON BIND CAPACITY 167 ug/dl (260-445); UNSAT IRON BIND CAPACITY 126 ug/dl (150-375)
[2018-07-29 08:18] LABS: ANION GAP 17.1 mmol/L (8-16); CARBON DIOXIDE 18.4 mmol/L (21.0-32.0); CREATININE - SERUM 3.9 mg/dL (0.6-1.3); POTASSIUM - SERUM 3.5 mmol/L (3.5-5.1)
[2018-07-29 08:34] LABS: CALCIUM 6.4 mg/dL (8.5-10.1)
[2018-07-29 09:45] VITALS: BP 138/69
[2018-07-29 15:52] VITALS: BP 119/59
[2018-07-29 21:53] VITALS: BP 131/72
[2018-07-30] VITALS: BP 128/64
[2018-07-30 05:47] VITALS: BP 118/60
[2018-07-30 06:15] LABS: BASOPHILS 0.4 % (0-2); EOSINOPHILS 3.2 % (0-7); HEMATOCRIT 28.5 % (36.0-48.0); HEMOGLOBIN 9.5 g/dL (12-16); IMMATURE GRANULOCYTES 4.3 % (0-5); LYMPHOCYTES 20.7 % (15-50); MCHC 33.3 g/dL (31.0-37.0); MCV 93.1 fL (80.0-100.0); MEAN PLATELET VOLUME 8.9 fL (7.4-10.4); MONOCYTES 7.6 % (2-11); NEUTROPHILS 63.8 % (40-80); PLATELET COUNT 215 10x3/uL (130-400); RBC 3.06 10x6/uL (4.00-5.40); RDW 14.6 % (11.5-14.5); WBC 7.5 10x3/uL (4.8-10.8)
[2018-07-30 06:31] LABS: ANION GAP 14.1 mmol/L (8-16); CREATININE - SERUM 3.5 mg/dL (0.6-1.3); PHOSPHOROUS 3.5 mg/dL (2.5-4.9); POTASSIUM - SERUM 3.1 mmol/L (3.5-5.1)
[2018-07-30 15:34] VITALS: BP 124/66
[2018-07-30 20:00] VITALS: BP 119/65
[2018-07-31 04:00] VITALS: BP 122/60
[2018-07-31 08:06] LABS: BASOPHILS 0.6 % (0-2); EOSINOPHILS 3.2 % (0-7); HEMATOCRIT 25.6 % (36.0-48.0); HEMOGLOBIN 8.5 g/dL (12-16); IMMATURE GRANULOCYTES 3.8 % (0-5); LYMPHOCYTES 24.1 % (15-50); MCH 31.1 pg (26.0-34.0); MCHC 33.2 g/dL (31.0-37.0); MCV 93.8 fL (80.0-100.0); MEAN PLATELET VOLUME 9.3 fL (7.4-10.4); NEUTROPHILS 58.3 % (40-80); PLATELET COUNT 222 10x3/uL (130-400); RBC 2.73 10x6/uL (4.00-5.40); RDW 14.9 % (11.5-14.5); WBC 6.6 10x3/uL (4.8-10.8)
[2018-07-31 08:07] LABS: CARBON DIOXIDE 21.7 mmol/L (21.0-32.0); CREATININE - SERUM 3.2 mg/dL (0.6-1.3); MAGNESIUM - SERUM 1.7 mg/dL (1.8-2.4); PHOSPHOROUS 2.9 mg/dL (2.5-4.9)
[2018-07-31 08:16] LABS: ANION GAP 14.2 mmol/L (8-16); POTASSIUM - SERUM 4.9 mmol/L (3.5-5.1)
[2018-07-31 08:20] LABS: CALCIUM 6.8 mg/dL (8.5-10.1)
[2018-07-31 10:21] VITALS: BP 135/70
[2018-07-31 12:00] VITALS: BP 120/72
--- NOTE | 2018-07-31 14:04 | OP ---
PATIENT NAME: BAL DEL VALLE MEDICAL RECORD: [id number] :54 LOCATION:D.M2 D.2135 ADMISSION DATE:07/23/18 SURGEON: ROSE URRUTIA MD DATE OF OPERATION: 07/23/2018 PREOPERATIVE DIAGNOSES: 1. Need for IV access. 2. Dkqdo-fk-twynstc renal failure. 3. Hyperkalemia. POSTOPERATIVE DIAGNOSES: 1. Need for IV access. 2. Suzug-fn-cvujumk renal failure. 3. Hyperkalemia. PROCEDURE: Right IJ 12.5-cm Trialysis catheter placement. SURGEON: Rose Urrutia MD REPORT OF PROCEDURE: The patient's right neck was prepped and draped in sterile fashion. A 5 cc of 1% lidocaine with epinephrine was infused into the surrounding tissues. Using ultrasound guidance, a needle was used to cannulate the right internal jugular vein and a guidewire was advanced with ease. A skin incision was made with an 11 blade and the dilators were placed over the wire, followed by the Trialysis catheter. The catheter aspirated nonpulsatile dark blood and flushed easily with saline. This was sutured into place with 4-0 nylons and dressed appropriately. COMPLICATIONS: None. CONDITION: Stable. ANESTHESIA: Local. BLOOD LOSS: Minimal. Procedure done in the ICU at the bedside. TRANSINT:[id number] Voice Confirmation ID: [id number] DOCUMENT ID: [id number] ROSE URRUTIA MD at 1404 CC: [id number] DICTATION DATE: 07/24/18 08 SWATCH MAKER: 07/24/18 1202 ADM IN [address] [address] [place] [address]
--- NOTE | 2018-07-31 15:25 | MORECARE ---
CASE MANAGEMENT DISCHARGE SUMMARY PATIENT: BAL DEL VALLE UNIT: [id number] ADM DATE: 07/23/18 AGE: 68 : 54 SEX: F ROOM/BED: D.3304 AUTHOR: MATTEO GOMEZ PHYSICIAN: REFERRING PHYSICIAN: ANIYA HIRSCH MD DATE OF SERVICE: 07/31/18 Discharge Plan Patient Name: BAL DEL VALLE Facility: [facility]:[place] : 1950 Planned Disposition: Home Anticipated Discharge Date: Discharge Date: Expected LOS: Initial Reviewer: [email or web address] Initial Review Date: 07/31/2018 Generated: 07/31/18 4:25 pm Comments DCP- Discharge Planning Updated by [email or web address]: Bandar Olvera on 07/31/18 2:[address] Patient Name: BAL DEL VALLE Admission Status: Urgent Accout number: [id number] Admission Date: 07-23-2018 : 1950 Admission Diagnosis:ACUTE KIDNEY FAILURE, UNSPECIFIED Attending: Aniya Hirsch Current LOS: 8 Anticipated DC Date: Planned Disposition: Home Primary Insurance: MEDICARE A & B Discharge Planning Comments: CM MET WITH PT IN ROOM TO DISCUSS DISCHARGE PLANNING AND NEEDS. 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 PT HAS NO MEDICAL EQUIPMENT AND NO OUTSIDE SERVICES ASSISTING IN THE HOME. CM DISCUSSED AVAILABILITY OF HOME HEALTH, REHAB SERVICES AND MEDICAL EQUIPMENT. PT DENIES DISCHARGE NEEDS, REPORTS HER FRIEND WILL PICK HER UP FOR DISCHARGE HOME. CM DISCUSSED [employer] ASSISTANCE PROGRAM APPLICATION THAT WAS FAXED IN TO [employer] ON OR ABOUT 07-10-18; PT STATES THAT SHE STILL HAS THE INFORMATION AT HOME BUT NEVER DID FAX THEM PROOF OF INCOME TO COMPLETE THE APPLICATION PROCESS. CM ASKED PT FOR HER PRESCRIPTION DRUG COVERAGE PHONE NUMBER FOR CM TO CALL TO SEE IF SANDOSTATIN WILL BE COVERED BY HER INSURANCE. PT DID NOT HAVE THE CARD AND WILL CALL HER FRIEND OF 5 YEARS THAT ASSISTS HER TO GET THE NUMBER AND SHE WILL PROVIDE IT TO CM. CM WAITING PT'S DRUG PRESCRIPTION COVERAGE NUMBER IN PREPARATION TO [place], IF NEEDED, TO FIND OUT IF ANY NEEDED HOME MEDICATIONS WILL BE COVERED BY PT'S PLAN. PT DENIES DISCHARGE NEEDS AT THIS TIME. Embossing Machine Operator Helper: Bandar Olvera DCPIA - Discharge Planning Initial Assessment Updated by [email or web address]: Bandar Olvera on 07/31/18 3:18 pm * Is the patient Alert and Oriented? Yes * How many steps to enter\exit or inside your home? RAMP * PCP DR TURNER IN [place] * Pharmacy [facility] ON [address] * Preadmission Environment Home with Family * ADLs Independent * Equipment None * Other Equipment NO MEDICAL EQUIPMENT PROVIDER PREFERENCE * List name and contact numbers for known caregivers / representatives who currently or will assist patient after discharge: VANESSA DEL VALLE, SON, * Verbal permission to speak to the caregivers and representatives has been obtained from the patient. N/A * Community resources currently utilized None * Please name any agencies selected above. NONE * Additional services required to return to the preadmission environment? No * Can the patient safely return to the preadmission environment? Yes * Has this patient been hospitalized within the prior 30 days at any hospital? Yes Patient Name: BAL DEL VALLE Page [id number] at 1525 All edits/amendments must be made on the electronic document DICTATION DATE: 07/31/18 1524 APPEALS NURSE: AJAY 07/31/18 1524 RPT#: [id number] DC DATE: STATUS: ADM IN [facility] [address] [place] [address] END OF REPORT
[2018-07-31 16:45] VITALS: BP 106/53
--- NOTE | 2018-07-31 17:07 | MORECARE ---
CASE MANAGEMENT DISCHARGE SUMMARY PATIENT: BAL DEL VALLE UNIT: [id number] ADM DATE: 07/23/18 AGE: 68 : 52 SEX: F ROOM/BED: D.1230 AUTHOR: MATTEO GOMEZ PHYSICIAN: REFERRING PHYSICIAN: ANIYA HIRSCH MD DATE OF SERVICE: 07/31/18 Discharge Plan Patient Name: BAL DEL VALLE Facility: [facility]:[place] : 1950 Planned Disposition: Home Anticipated Discharge Date: Discharge Date: Expected LOS: Initial Reviewer: [email or web address] Initial Review Date: 07/31/2018 Generated: 07/31/18 6:07 pm Comments DCP- Discharge Planning Updated by [email or web address]: Bandar Olvera on 07/31/18 4:[address] Patient Name: BAL DEL VALLE Admission Status: Urgent Accout number: [id number] Admission Date: 07-23-2018 : 1950 Admission Diagnosis:ACUTE KIDNEY FAILURE, UNSPECIFIED Attending: Aniya Hirsch Current LOS: 8 Anticipated DC Date: Planned Disposition: Home Primary Insurance: MEDICARE A & B Discharge Planning Comments: CM MET WITH PT IN ROOM TO DISCUSS DISCHARGE PLANNING AND NEEDS. 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 PT HAS NO MEDICAL EQUIPMENT AND NO OUTSIDE SERVICES ASSISTING IN THE HOME. CM DISCUSSED AVAILABILITY OF HOME HEALTH, REHAB SERVICES AND MEDICAL EQUIPMENT. PT DENIES DISCHARGE NEEDS, REPORTS HER FRIEND WILL PICK HER UP FOR DISCHARGE HOME. CM DISCUSSED [employer] ASSISTANCE PROGRAM APPLICATION THAT WAS FAXED IN TO [employer] ON OR ABOUT 07-10-18; PT STATES THAT SHE STILL HAS THE INFORMATION AT HOME BUT NEVER DID FAX THEM PROOF OF INCOME TO COMPLETE THE APPLICATION PROCESS. CM ASKED PT FOR HER PRESCRIPTION DRUG COVERAGE PHONE NUMBER FOR CM TO CALL TO SEE IF SANDOSTATIN WILL BE COVERED BY HER INSURANCE. PT DID NOT HAVE THE CARD AND WILL CALL HER FRIEND OF 5 YEARS THAT ASSISTS HER TO GET THE NUMBER AND SHE WILL PROVIDE IT TO CM. CM WAITING PT'S DRUG PRESCRIPTION COVERAGE NUMBER IN PREPARATION TO [place], IF NEEDED, TO FIND OUT IF ANY NEEDED HOME MEDICATIONS WILL BE COVERED BY PT'S PLAN. PT DENIES DISCHARGE NEEDS AT THIS TIME. Paper Coater: Bandar Olvera Appended by Bandar Olvera on 07/31/2018 17:06 CDT: CM SPOKE TO PT WHO PROVIDED DRUG PRESCRIPTION COVERAGE NUMBER : PERLA MUSTAFA, RX BIN [id number], [place] [id number]. PHARMACY HELP LINE [phone], CUSTOMER SERVICE [phone]. NUMBERS COLLECTED TO CALL INSURANCE COMPANY, IF NEEDED, TO FIND OUT IF ANY NEEDED HOME MEDICATIONS WILL BE COVERED BY PT'S PLAN. PT DENIES DISCHARGE NEEDS AT THIS TIME. Paper Coater: Bandar Olvera DCPIA - Discharge Planning Initial Assessment Updated by [email or web address]: Bandar Olvera on 07/31/18 3:18 pm * Is the patient Alert and Oriented? Yes * How many steps to enter\exit or inside your home? RAMP * PCP DR TURNER IN [place] * Pharmacy [facility] ON [address] * Preadmission Environment Home with Family * ADLs Independent * Equipment None * Other Equipment NO MEDICAL EQUIPMENT PROVIDER PREFERENCE * List name and contact numbers for known caregivers / representatives who currently or will assist patient after discharge: VANESSA DEL VALLE, SON, * Verbal permission to speak to the caregivers and representatives has been obtained from the patient. N/A * Community resources currently utilized None * Please name any agencies selected above. NONE * Additional services required to return to the preadmission environment? No * Can the patient safely return to the preadmission environment? Yes * Has this patient been hospitalized within the prior 30 days at any hospital? Yes Last DP export: 07/31/18 2:25 p Patient Name: BAL DEL VALLE Page [phone] at 1707 All edits/amendments must be made on the electronic document DICTATION DATE: 07/31/181705 DIET CONSULTANT: AJAY 07/31/181705 RPT#: [id number] DC DATE: STATUS: ADM IN [facility] [address] [place] [address] END OF REPORT
[2018-07-31 21:30] VITALS: BP 138/64
[2018-07-31 23:55] VITALS: BP 122/57
[2018-08-01 05:00] LABS: BASOPHILS 0.3 % (0-2); EOSINOPHILS 2.9 % (0-7); HEMATOCRIT 25.1 % (36.0-48.0); HEMOGLOBIN 8.3 g/dL (12-16); IMMATURE GRANULOCYTES 5.2 % (0-5); LYMPHOCYTES 24.7 % (15-50); MCH 31.3 pg (26.0-34.0); MCHC 33.1 g/dL (31.0-37.0); MCV 94.7 fL (80.0-100.0); MEAN PLATELET VOLUME 9.1 fL (7.4-10.4); MONOCYTES 7.2 % (2-11); NEUTROPHILS 59.7 % (40-80); PLATELET COUNT 230 10x3/uL (130-400); RBC 2.65 10x6/uL (4.00-5.40); WBC 7.5 10x3/uL (4.8-10.8)
[2018-08-01 05:25] LABS: ANION GAP 14.2 mmol/L (8-16); CALCIUM 7.1 mg/dL (8.5-10.1); CARBON DIOXIDE 22.8 mmol/L (21.0-32.0); PHOSPHOROUS 3.3 mg/dL (2.5-4.9)
[2018-08-01 08:14] VITALS: BP 128/61
[2018-08-01 11:53] VITALS: BP 153/69
[2018-08-01 15:56] VITALS: BP 137/65
[2018-08-01 20:28] VITALS: BP 131/58
[2018-08-02] VITALS (7 sets, daily range): BP systolic 121–142; BP diastolic 55–74
[2018-08-02 05:09] LABS: BASOPHILS 0.3 % (0-2); HEMATOCRIT 25.5 % (36.0-48.0); HEMOGLOBIN 8.5 g/dL (12-16); IMMATURE GRANULOCYTES 4.3 % (0-5); LYMPHOCYTES 28.5 % (15-50); MCH 31.3 pg (26.0-34.0); MCHC 33.3 g/dL (31.0-37.0); MCV 93.8 fL (80.0-100.0); MEAN PLATELET VOLUME 8.9 fL (7.4-10.4); MONOCYTES 7.6 % (2-11); NEUTROPHILS 56.3 % (40-80); PLATELET COUNT 213 10x3/uL (130-400); RBC 2.72 10x6/uL (4.00-5.40); WBC 7.2 10x3/uL (4.8-10.8)
[2018-08-02 05:19] LABS: ANION GAP 12.9 mmol/L (8-16); CARBON DIOXIDE 22.9 mmol/L (21.0-32.0); CREATININE - SERUM 2.7 mg/dL (0.6-1.3); PHOSPHOROUS 3.5 mg/dL (2.5-4.9); POTASSIUM - SERUM 4.8 mmol/L (3.5-5.1)
[2018-08-02 05:24] LABS: CALCIUM 6.9 mg/dL (8.5-10.1)
[2018-08-03 05:49] VITALS: BP 119/62
[2018-08-03 06:34] LABS: BASOPHILS 0.4 % (0-2); EOSINOPHILS 2.2 % (0-7); HEMATOCRIT 26.5 % (36.0-48.0); HEMOGLOBIN 8.9 g/dL (12-16); IMMATURE GRANULOCYTES 5.3 % (0-5); LYMPHOCYTES 26.7 % (15-50); MCH 31.7 pg (26.0-34.0); MCHC 33.6 g/dL (31.0-37.0); MCV 94.3 fL (80.0-100.0); MEAN PLATELET VOLUME 9.3 fL (7.4-10.4); MONOCYTES 6.6 % (2-11); NEUTROPHILS 58.8 % (40-80); PLATELET COUNT 243 10x3/uL (130-400); RBC 2.81 10x6/uL (4.00-5.40); RDW 15.1 % (11.5-14.5); WBC 8.4 10x3/uL (4.8-10.8)
[2018-08-03 06:38] LABS: % SATURATION 26 % (15-55); IRON 61 ug/dl (35-150); TOTAL IRON BIND CAPACITY 232 ug/dl (260-445); UNSAT IRON BIND CAPACITY 171 ug/dl (150-375)
[2018-08-03 06:49] LABS: ANION GAP 14.5 mmol/L (8-16); CARBON DIOXIDE 23.3 mmol/L (21.0-32.0); CREATININE - SERUM 2.7 mg/dL (0.6-1.3); MAGNESIUM - SERUM 1.2 mg/dL (1.8-2.4); PHOSPHOROUS 3.6 mg/dL (2.5-4.9); POTASSIUM - SERUM 4.8 mmol/L (3.5-5.1)
[2018-08-03 06:53] LABS: CALCIUM 6.9 mg/dL (8.5-10.1)
[2018-08-03] MEDS ORDERED: MAG 6464 MG PO (07:21)
[2018-08-03] MEDS ORDERED: FLORAJEN3 CAPS460 MG PO (07:22)
[2018-08-03] MEDS ORDERED: PEPCID PO (07:22)
[2018-08-03] MEDS ORDERED: SANDOSTATIN SC (07:22)
--- NOTE | 2018-08-03 08:56 | MORECARE ---
CASE MANAGEMENT DISCHARGE SUMMARY PATIENT: BAL DEL VALLE UNIT: [id number] ADM DATE: 07/23/18 AGE: 68 : 52 SEX: F ROOM/BED: D.3715 AUTHOR: MATTEO GOMEZ PHYSICIAN: REFERRING PHYSICIAN: ANIYA HIRSCH MD DATE OF SERVICE: 08/03/18 Discharge Plan Patient Name: BAL DEL VALLE Facility: [facility]:[place] : 1950 Planned Disposition: Home Anticipated Discharge Date: Discharge Date: Expected LOS: Initial Reviewer: [email or web address] Initial Review Date: 07/31/2018 Generated: 08/03/18 9:56 am Comments DCP- Discharge Planning Updated by [email or web address]: Bandar Olvera on 08/03/18 7:[address] Patient Name: BAL DEL VALLE Encounter No: [id number] : 1950 Primary Insurance: MEDICARE A & B Anticipated DC Date: Planned Disposition: Home DCP follow-up note: CM REVIEWED CHART, DOCTORS NOTE INDICATES CM IS WORKING ON GETTING SAND[place]AIN FOR OUTPATIENT / HOME USE. CM CALLED PT'S INSURANCE CUSTOMER SERVICE LINE, [email or web address], , WAS ADVISED THAT SANDOSTATIN COMES IN 10 - 20 - 30 MG ONLY, AND IT IS NOT COVERED. THE DOCTOR OR NURSE WILL HAVE TO CALL AND ASK FOR NON FORMULARY COVERAGE DETERMINATION. LINEN GRADER NURSE NOTIFIED. PT NOTIFIED. IMPORTANT MESSAGE FROM MEDICARE PROVIDED AND EXPLAINED. DOCTOR OR NURSE WILL NEED TO CALL [email or web address], , WITH REQUEST FOR NON FORMULARY COVERAGE DETERMINATION REGARDING SANDOSTATIN. MYRNA Dougherty DCP- Discharge Planning Updated by [email or web address]: Bandar Olvera on 07/31/18 4:[address] Patient Name: BAL DEL VALLE Admission Status: Urgent Accout number: [id number] Admission Date: 07-23-2018 : 1950 Admission Diagnosis:ACUTE KIDNEY FAILURE, UNSPECIFIED Attending: Aniya Hirsch Current LOS: 8 Anticipated DC Date: Planned Disposition: Home Primary Insurance: MEDICARE A & B Discharge Planning Comments: CM MET WITH PT IN ROOM TO DISCUSS DISCHARGE PLANNING AND NEEDS. 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 PT HAS NO MEDICAL EQUIPMENT AND NO OUTSIDE SERVICES ASSISTING IN THE HOME. CM DISCUSSED AVAILABILITY OF HOME HEALTH, REHAB SERVICES AND MEDICAL EQUIPMENT. PT DENIES DISCHARGE NEEDS, REPORTS HER FRIEND WILL PICK HER UP FOR DISCHARGE HOME. CM DISCUSSED [employer] ASSISTANCE PROGRAM APPLICATION THAT WAS FAXED IN TO [employer] ON OR ABOUT 07-10-18; PT STATES THAT SHE STILL HAS THE INFORMATION AT HOME BUT NEVER DID FAX THEM PROOF OF INCOME TO COMPLETE THE APPLICATION PROCESS. CM ASKED PT FOR HER PRESCRIPTION DRUG COVERAGE PHONE NUMBER FOR CM TO CALL TO SEE IF XENIA WILL BE COVERED BY HER INSURANCE. PT DID NOT HAVE THE CARD AND WILL CALL HER FRIEND OF 5 YEARS THAT ASSISTS HER TO GET THE NUMBER AND SHE WILL PROVIDE IT TO CM. CM WAITING PT'S DRUG PRESCRIPTION COVERAGE NUMBER IN PREPARATION TO [place], IF NEEDED, TO FIND OUT IF ANY NEEDED HOME MEDICATIONS WILL BE COVERED BY PT'S PLAN. PT DENIES DISCHARGE NEEDS AT THIS TIME. Utility Forester: Bandar Olvera Appended by Bandar Olvera on 07/31/2018 17:06 CDT: CM SPOKE TO PT WHO PROVIDED DRUG PRESCRIPTION COVERAGE NUMBER : PERLA MUSTAFA, RX BIN [id number], [place] [id number]. PHARMACY HELP LINE [phone], CUSTOMER SERVICE [phone]. NUMBERS COLLECTED TO CALL INSURANCE COMPANY, IF NEEDED, TO FIND OUT IF ANY NEEDED HOME MEDICATIONS WILL BE COVERED BY PT'S PLAN. PT DENIES DISCHARGE NEEDS AT THIS TIME. Utility Forester: Bandar Olvera DCPIA - Discharge Planning Initial Assessment Updated by [email or web address]: Bandar Olvera on 07/31/18 3:18 pm * Is the patient Alert and Oriented? Yes * How many steps to enter\exit or inside your home? RAMP * PCP DR TURNER IN [place] * Pharmacy [facility] ON [address] * Preadmission Environment Home with Family * ADLs Independent * Equipment None * Other Equipment NO MEDICAL EQUIPMENT PROVIDER PREFERENCE * List name and contact numbers for known caregivers / representatives who currently or will assist patient after discharge: VANESSA DEL VALLE, SON, * Verbal permission to speak to the caregivers and representatives has been obtained from the patient. N/A * Community resources currently utilized None * Please name any agencies selected above. NONE * Additional services required to return to the preadmission environment? No * Can the patient safely return to the preadmission environment? Yes * Has this patient been hospitalized within the prior 30 days at any hospital? Yes Last DP export: 07/31/18 4:07 p Patient Name: BAL DEL VALLE Page 31580 at 0856 All edits/amendments must be made on the electronic document DICTATION DATE: 08/03/18854 HEAD END DESIZING MACHINE OPERATOR: AJAY 08/03/18854 RPT#: [id number] DC DATE: STATUS: ADM IN [facility] [address] [place] [address] END OF REPORT
[2018-08-03 09:01] VITALS: BP 133/70
--- NOTE | 2018-08-03 09:10 | MORECARE ---
CASE MANAGEMENT DISCHARGE SUMMARY PATIENT: BAL DEL VALLE UNIT: [id number] ADM DATE: 07/23/18 AGE: 68 : 54 SEX: F ROOM/BED: D.1536 AUTHOR: MATTEO GOMEZ PHYSICIAN: REFERRING PHYSICIAN: ANIYA HIRSCH MD DATE OF SERVICE: 08/03/18 Discharge Plan Patient Name: BAL DEL VALLE Facility: [facility]:[place] : 1950 Planned Disposition: Home Anticipated Discharge Date: 08/03/18 Discharge Date: Expected LOS: 11 Initial Reviewer: [email or web address] Initial Review Date: 07/31/2018 Generated: 08/03/18 10:10 am Comments DCP- Discharge Planning Updated by [id number]: Bandar Olvera on 08/03/18 7:[address] Patient Name: BAL DEL VALLE Encounter No: [id number] : 1950 Primary Insurance: MEDICARE A & B Anticipated DC Date: Planned Disposition: Home DCP follow-up note: CM REVIEWED CHART, DOCTORS NOTE INDICATES CM IS WORKING ON GETTING SANDOSTAIN FOR OUTPATIENT / HOME USE. CM CALLED PT'S INSURANCE CUSTOMER SERVICE LINE, [employer], , WAS ADVISED THAT SANDOSTATIN COMES IN 10 - 20 - 30 MG ONLY, AND IT IS NOT COVERED. THE DOCTOR OR NURSE WILL HAVE TO CALL AND ASK FOR NON FORMULARY COVERAGE DETERMINATION. LADLER NURSE NOTIFIED. PT NOTIFIED. IMPORTANT MESSAGE FROM MEDICARE PROVIDED AND EXPLAINED. DOCTOR OR NURSE WILL NEED TO CALL [employer], , WITH REQUEST FOR NON FORMULARY COVERAGE DETERMINATION REGARDING SANDOSTATIN. MYRNA Dougherty DCP- Discharge Planning Updated by [id number]: Bandar Olvera on 07/31/18 4:[address] Patient Name: BAL DEL VALLE Admission Status: Urgent Accout number: [id number] Admission Date: 07-23-2018 : 1950 Admission Diagnosis:ACUTE KIDNEY FAILURE, UNSPECIFIED Attending: Aniya Hirsch Current LOS: 8 Anticipated DC Date: Planned Disposition: Home Primary Insurance: MEDICARE A & B Discharge Planning Comments: CM MET WITH PT IN ROOM TO DISCUSS DISCHARGE PLANNING AND NEEDS. 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 PT HAS NO MEDICAL EQUIPMENT AND NO OUTSIDE SERVICES ASSISTING IN THE HOME. CM DISCUSSED AVAILABILITY OF HOME HEALTH, REHAB SERVICES AND MEDICAL EQUIPMENT. PT DENIES DISCHARGE NEEDS, REPORTS HER FRIEND WILL PICK HER UP FOR DISCHARGE HOME. CM DISCUSSED [email or web address] ASSISTANCE PROGRAM APPLICATION THAT WAS FAXED IN TO [email or web address] ON OR ABOUT 07-10-18; PT STATES THAT SHE STILL HAS THE INFORMATION AT HOME BUT NEVER DID FAX THEM PROOF OF INCOME TO COMPLETE THE APPLICATION PROCESS. CM ASKED PT FOR HER PRESCRIPTION DRUG COVERAGE PHONE NUMBER FOR CM TO CALL TO SEE IF XENIA WILL BE COVERED BY HER INSURANCE. PT DID NOT HAVE THE CARD AND WILL CALL HER FRIEND OF 5 YEARS THAT ASSISTS HER TO GET THE NUMBER AND SHE WILL PROVIDE IT TO CM. CM WAITING PT'S DRUG PRESCRIPTION COVERAGE NUMBER IN PREPARATION TO CALLL, IF NEEDED, TO FIND OUT IF ANY NEEDED HOME MEDICATIONS WILL BE COVERED BY PT'S PLAN. PT DENIES DISCHARGE NEEDS AT THIS TIME. Ice Grinder: Bandar Olvera Appended by Bandar Olvera on 07/31/2018 17:06 CDT: CM SPOKE TO PT WHO PROVIDED DRUG PRESCRIPTION COVERAGE NUMBER : PER[employer] MUSTAFA, RX BIN [id number], [place] [id number]. PHARMACY HELP LINE [phone], CUSTOMER SERVICE [phone]. NUMBERS COLLECTED TO CALL INSURANCE COMPANY, IF NEEDED, TO FIND OUT IF ANY NEEDED HOME MEDICATIONS WILL BE COVERED BY PT'S PLAN. PT DENIES DISCHARGE NEEDS AT THIS TIME. Ice Grinder: Bandar Olvera DCPIA - Discharge Planning Initial Assessment Updated by [id number]: Bandar Olvera on 07/31/18 3:18 pm * Is the patient Alert and Oriented? Yes * How many steps to enter\exit or inside your home? RAMP * PCP DR TURNER IN [place] * Pharmacy [facility] [address] * Preadmission Environment Home with Family * ADLs Independent * Equipment None * Other Equipment NO MEDICAL EQUIPMENT PROVIDER PREFERENCE * List name and contact numbers for known caregivers / representatives who currently or will assist patient after discharge: VANESSA DEL VALLE, SON, * Verbal permission to speak to the caregivers and representatives has been obtained from the patient. N/A * Community resources currently utilized None * Please name any agencies selected above. NONE * Additional services required to return to the preadmission environment? No * Can the patient safely return to the preadmission environment? Yes * Has this patient been hospitalized within the prior 30 days at any hospital? Yes Coverage Notice Reviewer: [email or web address] Lauri Portillo [place] Notice Issued Date-Time: 08/03/2018 8:55 Notice Type: IM Discharge Notice Notice Delivered To: Patient Relationship to Patient: Head Baker Name: Delivery Method: HAND - Hand Delivered Irma Days: Prior Verbal Notification: Recipient Understood Notice: Yes Recipient Signature: Yes Med Rec Note Co-signed by Attending: Coverage Notice Comment: Last DP export: 08/03/18 7:56 a Patient Name: BAL DEL VALLE Page [id number] at 0910 All edits/amendments must be made on the electronic document DICTATION DATE: 08/03/18908 DIRECTOR BLOOD BANK: AJAY 08/03/18908 RPT#: [id number] DC DATE: STATUS: ADM IN [facility] [address] [place] [address] END OF REPORT
[2018-08-03] MEDS ORDERED: OCTREOTIDE IM (11:17)
[2018-08-03] MEDS ORDERED: QUESTRAN LIG1 PACKET PO (11:18)
[2018-08-03] MEDS ORDERED: TUMS PO (11:21)
[2018-08-03] MEDS ORDERED: FAMOTIDINE10 MG PO (11:32)
[2018-08-03 11:53] VITALS: BP 133/71
--- NOTE | 2018-08-04 10:57 | MORECARE ---
CASE MANAGEMENT DISCHARGE SUMMARY PATIENT: BAL DEL VALLE UNIT: [id number] ADM DATE: 07/23/18 AGE: 68 : 52 SEX: F ROOM/BED: D.3748 AUTHOR: MATTEO GOMEZ PHYSICIAN: REFERRING PHYSICIAN: ANIYA HIRSCH MD DATE OF SERVICE: 08/04/18 Discharge Plan Patient Name: BAL DEL VALLE Facility: [facility]:[place] : 1950 Planned Disposition: Home Anticipated Discharge Date: 08/03/18 Discharge Date: 08/03/2018 Expected LOS: 11 Initial Reviewer: [email or web address] Initial Review Date: 07/31/2018 Generated: 08/04/18 9:23 am Comments DCP- Discharge Planning Updated by [id number]: Bandar Olvera on 08/03/18 7:[address] Patient Name: BAL DEL VALLE Encounter No: [id number] : 1950 Primary Insurance: MEDICARE A & B Anticipated DC Date: Planned Disposition: Home DCP follow-up note: CM REVIEWED CHART, DOCTORS NOTE INDICATES CM IS WORKING ON GETTING SANDOSTAIN FOR OUTPATIENT / HOME USE. CM CALLED PT'S INSURANCE CUSTOMER SERVICE LINE, [employer] [phone], WAS ADVISED THAT SANDOSTATIN COMES IN 10 - 20 - 30 MG ONLY, AND IT IS NOT COVERED. THE DOCTOR OR NURSE WILL HAVE TO CALL AND ASK FOR NON FORMULARY COVERAGE DETERMINATION. METAL FABRICATING INSPECTOR NURSE NOTIFIED. PT NOTIFIED. IMPORTANT MESSAGE FROM MEDICARE PROVIDED AND EXPLAINED. DOCTOR OR NURSE WILL NEED TO CALL [employer], , WITH REQUEST FOR NON FORMULARY COVERAGE DETERMINATION REGARDING SANDOSTATIN. MYRNA Dougherty DCP- Discharge Planning Updated by [email or web address]: Bandar Olvera on 07/31/18 4:[address] Patient Name: BAL DEL VALLE Admission Status: Urgent Accout number: [id number] Admission Date: 07-23-2018 : 1950 Admission Diagnosis:ACUTE KIDNEY FAILURE, UNSPECIFIED Attending: Aniya Hirsch Current LOS: 8 Anticipated DC Date: Planned Disposition: Home Primary Insurance: MEDICARE A & B Discharge Planning Comments: CM MET WITH PT IN ROOM TO DISCUSS DISCHARGE PLANNING AND NEEDS. 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 PT HAS NO MEDICAL EQUIPMENT AND NO OUTSIDE SERVICES ASSISTING IN THE HOME. CM DISCUSSED AVAILABILITY OF HOME HEALTH, REHAB SERVICES AND MEDICAL EQUIPMENT. PT DENIES DISCHARGE NEEDS, REPORTS HER FRIEND WILL PICK HER UP FOR DISCHARGE HOME. CM DISCUSSED [employer] ASSISTANCE PROGRAM APPLICATION THAT WAS FAXED IN TO [employer] ON OR ABOUT 07-10-18; PT STATES THAT SHE STILL HAS THE INFORMATION AT HOME BUT NEVER DID FAX THEM PROOF OF INCOME TO COMPLETE THE APPLICATION PROCESS. CM ASKED PT FOR HER PRESCRIPTION DRUG COVERAGE PHONE NUMBER FOR CM TO CALL TO SEE IF XENIA WILL BE COVERED BY HER INSURANCE. PT DID NOT HAVE THE CARD AND WILL CALL HER FRIEND OF 5 YEARS THAT ASSISTS HER TO GET THE NUMBER AND SHE WILL PROVIDE IT TO CM. CM WAITING PT'S DRUG PRESCRIPTION COVERAGE NUMBER IN PREPARATION TO CALLL, IF NEEDED, TO FIND OUT IF ANY NEEDED HOME MEDICATIONS WILL BE COVERED BY PT'S PLAN. PT DENIES DISCHARGE NEEDS AT THIS TIME. Software Implementation Specialist: Bandar Olvera Appended by Bandar Olvera on 07/31/2018 17:06 CDT: CM SPOKE TO PT WHO PROVIDED DRUG PRESCRIPTION COVERAGE NUMBER : PER[employer] MUSTAFA, RX BIN [id number], [place] [id number]. PHARMACY HELP LINE [phone], CUSTOMER SERVICE [phone]. NUMBERS COLLECTED TO CALL INSURANCE COMPANY, IF NEEDED, TO FIND OUT IF ANY NEEDED HOME MEDICATIONS WILL BE COVERED BY PT'S PLAN. PT DENIES DISCHARGE NEEDS AT THIS TIME. Software Implementation Specialist: Bandar Olvera DCPIA - Discharge Planning Initial Assessment Updated by [email or web address]: Bandar Olvera on 07/31/18 3:18 pm * Is the patient Alert and Oriented? Yes * How many steps to enter\exit or inside your home? RAMP * PCP DR TURNER IN [place] * Pharmacy [facility] ON [address] * Preadmission Environment Home with Family * ADLs Independent * Equipment None * Other Equipment NO MEDICAL EQUIPMENT PROVIDER PREFERENCE * List name and contact numbers for known caregivers / representatives who currently or will assist patient after discharge: VANESSA DEL VALLE, SON, * Verbal permission to speak to the caregivers and representatives has been obtained from the patient. N/A * Community resources currently utilized None * Please name any agencies selected above. NONE * Additional services required to return to the preadmission environment? No * Can the patient safely return to the preadmission environment? Yes * Has this patient been hospitalized within the prior 30 days at any hospital? Yes Coverage Notice Reviewer: [id number] Lauri Olvera Notice Issued Date-Time: 08/03/2018 8:55 Notice Type: IM Discharge Notice Notice Delivered To: Patient Relationship to Patient: Stone Gluer Name: Delivery Method: HAND - Hand Delivered Irma Days: Prior Verbal Notification: Recipient Understood Notice: Yes Recipient Signature: Yes Med Rec Note Co-signed by Attending: Coverage Notice Comment: Last DP export: 08/03/18 8:10 a Patient Name: BAL DEL VALLE Page [id number] at 1057 All edits/amendments must be made on the electronic document DICTATION DATE: 08/04/18822 VACUUM FILTER OPERATOR: AJAY 08/04/18822 RPT#: [id number] DC DATE:08/03/18 STATUS: DIS IN [facility] [address] [place] [address] END OF REPORT
== END 2018-08-03 17:09 | disposition home or self-care (01) | DRG 683 ==
LOC: D.M2 12:08 → D.ICU 12:08 → D.SDCHOLD 12:08 → D.M2 13:12 → D.ICU 17:28 → D.M2 07-24 14:37
PROVIDERS: Internal Medicine Gastroenterology; Internal Medicine Nephrology; Internal Medicine Pulmonary Disease; ADMIT Internal Medicine Nephrology; ATTEND Internal Medicine Nephrology
PROC: 05HM33Z Insertion of Infusion Device into Right Internal Jugular Vein, Percutaneous Approach (ICD-10-PCS; principal; 2018-07-23)
DX: N17.9 Acute kidney failure, unspecified (principal); E87.2 Acidosis; E87.1 Hypo-osmolality and hyponatremia; E87.3 Alkalosis; Z68.1 Body mass index [BMI] 19.9 or less, adult; K91.2 Postsurgical malabsorption, not elsewhere classified; E44.0 Moderate protein-calorie malnutrition; E87.5 Hyperkalemia; E86.0 Dehydration; K21.9 Gastro-esophageal reflux disease without esophagitis; E78.5 Hyperlipidemia, unspecified; E83.51 Hypocalcemia; M81.0 Age-related osteoporosis without current pathological fracture; J30.9 Allergic rhinitis, unspecified; F45.8 Other somatoform disorders; I95.9 Hypotension, unspecified; R00.0 Tachycardia, unspecified; N18.4 Chronic kidney disease, stage 4 (severe); M10.9 Gout, unspecified; E83.42 Hypomagnesemia; D64.9 Anemia, unspecified

== ENCOUNTER 2020-06-26 10:19 | Day surgery (SDC) | payer MEDICARE, BC ==
[~2020-06-26] VITALS: Ht 165.1 cm; Wt 57.3 kg
[~2020-06-26 10:19] MED LIST changes: +FAMOTIDINE10 MG PO; +FLORAJEN3 CAPS460 MG PO; +MAG 6464 MG PO; +OCTREOTIDE IM; +PEPCID PO; +QUESTRAN LIG1 PACKET PO; +SANDOSTATIN SC; +TUMS PO
[2020-06-26 10:54] LABS: BASOPHILS 0.3 % (0-2); HEMATOCRIT 41.1 % (36.0-48.0); HEMOGLOBIN 13.4 g/dL (12-16); IMMATURE GRANULOCYTES 0.2 % (0-5); LYMPHOCYTES 28.9 % (15-50); MCHC 32.6 g/dL (31.0-37.0); MCV 98.1 fL (80.0-100.0); MEAN PLATELET VOLUME 10.9 fL (7.4-10.4); MONOCYTES 5.1 % (2-11); NEUTROPHIL ABS# 3.82 10x3/uL (1.56-6.13); NEUTROPHILS 61.5 % (40-80); RBC 4.19 10x6/uL (4.00-5.40); RDW 14.4 % (11.5-14.5); WBC 6.2 10x3/uL (4.8-10.8)
[2020-06-26 10:55] LABS: PLATELET COUNT 159 10x3/uL (130-400)
[2020-06-26 10:58] LABS: ANION GAP 14.6 mmol/L (8-16); CALCIUM 9.4 mg/dL (8.5-10.1); CARBON DIOXIDE 25.5 mmol/L (21.0-32.0); CREATININE - SERUM 2.6 mg/dL (0.6-1.3); POTASSIUM - SERUM 5.1 mmol/L (3.5-5.1)
[2020-06-26] MEDS ORDERED: ZYLOPRIM100 MG PO (11:39)
[2020-06-26] MEDS ORDERED: VITAMIN D325 MC1 PO (11:40)
[2020-06-26 11:42] VITALS: Ht 165.1 cm; Wt 57.3 kg
--- NOTE | 2020-06-26 12:55 | NUR ---
DC INSTRUCTIONS GIVEN TO PT. STATES UNDERSTANDING. DC'D IV CATH FULLY INTACT. WILL DC SHORTLY.
--- NOTE | 2020-06-26 13:12 | NUR ---
PT LEFT UNIT VIA WC AT 1307
--- NOTE | 2020-06-28 07:30 | OP ---
PATIENT NAME: BAL DEL VALLE MEDICAL RECORD: [id number] :[birth year] LOCATION:[facility] ADMISSION DATE: SURGEON: KAMILLE WISEMAN DO DATE OF OPERATION: 06/26/2020 PROCEDURE: EGD with biopsies and dilation. INDICATION FOR PROCEDURE: History of Lin's esophagus, dysphagia, GERD. SCOPE: Olympus video gastroscope. MEDICATIONS: Propofol 150 mg IV per anesthesia. ESTIMATED BLOOD LOSS: Minimal. COMPLICATIONS: None. FINDINGS: Informed consent was given. The patient was made comfortable with the above medication. After reaching an adequate level of sedation by slow IV push, the patient was placed on her left side. The endoscope was advanced under direct visualization through the mouth to the second portion of the duodenum with ease. The esophagus appeared normal down to the GE junction. At the GE junction, there were changes consistent with LA class C reflux-induced esophagitis and possible Lin's mucosa. If Lin's is present, it is short segment. There were no obvious areas of abnormal tissue visualized endoscopically. Cold forceps biopsies were taken randomly from the squamocolumnar junction to evaluate for Lin's and dysplasia. At the GE junction, there was also some stenosis. A 16-18 CRE dilating balloon was placed through the endoscope and the site was dilated up to 18 mm maximum diameter, successfully. The endoscope was advanced beyond the GE junction into the stomach and retroflexed to view the cardia and fundus. Anatomically, the site looked normal. There was no hiatal hernia noted. Throughout the entire stomach, there were areas of erythema and granularity consistent with mild chronic gastritis changes. Cold forceps biopsies were taken from the antrum and incisura to submit for histopathology and to rule out the presence of H. pylori. The endoscope was advanced beyond the pylorus into the duodenum, which appeared normal to the second portion. Cold forceps biopsies were randomly taken to submit for histopathology. The endoscope was withdrawn from the patient. The patient tolerated the procedure well and there were no complications. IMPRESSION: 1. LA class A reflux-induced esophagitis. 2. Possible Lin's mucosa, status post biopsies taken from the squamocolumnar junction. 3. Esophageal stenosis located at the GE junction, dilated up to 18 mm maximum diameter, successfully. 4. Mild chronic gastritis changes. PLAN AND RECOMMENDATIONS: 1. Discharge home when recovery parameters are met. 2. Follow up biopsy specimen results. 3. GERD diet and reflux precautions. 4. Hold Pepcid and change antacid therapy to omeprazole 40 mg daily or OPERATIVE REPORT [id number] BAL DEL VALLE equivalent PPI times 60 days. 5. Follow up in GI clinic in 6 to 8 weeks to discuss symptoms and determine if further workup is needed regarding some abdominal pain symptoms. If pain is ongoing consider a gastric emptying scan. 6. After 60 days, consider returning to Pepcid or reducing dose to 20 mg daily as symptoms warrant. The patient will likely need a repeat EGD in 2 years for Lin's esophagus. TRANSINT:[id number] Voice Confirmation ID: [id number] DOCUMENT ID: [id number] KAMILLE WISEMAN DO at 0730 CC: [id number] DICTATION DATE: 06/26/20 1229 METHANE GAS COLLECTION SYSTEM OPERATOR: 06/26/20 1730 [facility] 06/26/20 [id number] [place] [address]
== END 2020-06-26 13:07 | disposition home or self-care (01) ==
LOC: D.OPS 10:19
PROVIDERS: Anesthesiology; ATTEND Internal Medicine Gastroenterology
DX: K22.70 Barrett's esophagus without dysplasia (principal); R13.10 Dysphagia, unspecified; K21.00 Gastro-esophageal reflux disease with esophagitis, without bleeding; K22.2 Esophageal obstruction; K29.70 Gastritis, unspecified, without bleeding; I10 Essential (primary) hypertension